=== PATIENT | female | born 1990 | race Hispanic/Latino ===

== ENCOUNTER 2017-10-11 04:56 | Inpatient (IN) | payer MEDICAID ==
[2017-10-11 05:57] LABS: BASOPHILS % (AUTO) 0.2 % (0.0-5.0); EOSINOPHILS % (AUTO) 0.1 % (0.0-8.0); HEMATOCRIT 28.3 % (36-48); LYMPHOCYTES % (AUTO) 8.8 % (21.0-51.0); MEAN CORPUSCULAR HEMOGLOBIN 20.4 pg (27.0-33.0); MEAN CORPUSCULAR HGB CONC 30.2 g/dL (32.0-36.0); MEAN CORPUSCULAR VOLUME 67.8 fL (79-99); MONOCYTES % (AUTO) 3.6 % (3.0-13.0); NEUTROPHILS % (AUTO) 87.3 % (40.0-77.0); PLATELET COUNT (AUTO) 305 K/uL (130-400); RED BLOOD CELL COUNT(AUTO) 4.18 MIL/uL (4.00-5.50); RED CELL DISTRIBUTION WIDTH 18.1 % (11.0-15.5); WHITE BLOOD COUNT (AUTO) 15.8 K/uL (4.8-10.8)
[2017-10-11 06:06] LABS: CREATININE 0.6 mg/dL (0.5-1.5); POTASSIUM 3.6 mmol/L (3.5-5.1)
[2017-10-11 06:10] LABS: ALBUMIN 2.4 g/dL (3.5-5.0); BILIRUBIN,TOTAL 0.3 mg/dL (0.2-1.0); INR 0.96 (0.85-1.15); PARTIAL THROMBOPLASTIN TIME 26.6 SEC (26.3-35.5); PROTHROMBIN TIME 10.1 SEC (9.6-11.6)
[2017-10-11] MEDS ORDERED: OXYTOCIN 10 USP UNITS/ML ONE (06:21)
[2017-10-11] MEDS ORDERED: LACTATED RINGERS 1000ML 1,000 ML IV ONE (06:21)
[2017-10-11] MEDS ORDERED: WITCH HAZEL 1 PAD TP PRN (06:45)
[2017-10-11] MEDS ORDERED: ACETAMINOPHEN-CODEINE 300/30MG TAB PO PRN (06:45)
[2017-10-11] MEDS ORDERED: ACETAMINOPHEN 325 MG TAB PO PRN (06:45)
[2017-10-11] MEDS ORDERED: OXYTOCIN-LR 20 UNITS/1000 ML 1,000 ML IV SCH (06:45)
[2017-10-11] MEDS ORDERED: BENZOCAINE/LANOLIN/ALOE VERA 60 ML AEROSOL TP PRN (06:45)
[2017-10-11] MEDS ORDERED: HYDROCODONE/ACETAMINOPHEN 5/325 MG TAB PO PRN (06:45)
[2017-10-11] MEDS: IBUPROFEN 800 MG TAB PO PRN ×2 (08:41→15:54)
[2017-10-11] MEDS: DOCUSATE SODIUM 100 MG CAP PO SCH ×2 (08:41→21:15)
[2017-10-11 09:00] LABS: RAPID PLASMA REAGIN NONREACTIVE (NONREACTIVE)
[2017-10-11 09:01] LABS: AMPHET/METH SCREEN,URINE NEGATIVE (NEGATIVE); BARBITURATE SCREEN, URINE NEGATIVE (NEGATIVE); BENZODIAZEPINES SCREEN,URINE NEGATIVE (NEGATIVE); CANNABINOID SCREEN,URINE NEGATIVE (NEGATIVE); COCAINE SCREEN,URINE POSITIVE (NEGATIVE); OPIATE SCREEN,URINE NEGATIVE (NEGATIVE); PHENCYCLIDINE SCREEN,URINE NEGATIVE (NEGATIVE)
[2017-10-11 12:20] VITALS: BP 109/73
[2017-10-11 15:41] VITALS: BP 93/51
[2017-10-11 19:29] VITALS: BP 119/69
[2017-10-11 23:44] VITALS: BP 110/58
[2017-10-12 03:41] VITALS: BP 119/62
[2017-10-12] MEDS: IBUPROFEN 800 MG TAB PO PRN (06:21)
[2017-10-12 07:24] VITALS: BP 122/67
[2017-10-12] MEDS: DOCUSATE SODIUM 100 MG CAP PO SCH (09:11)
[2017-10-12 12:11] VITALS: BP 115/63
[2017-10-12] MEDS ORDERED: MEASLES/MUMPS/RUBELLA VACCINE, LIVE 0.5 ML/VIAL SQ SCH (15:00)
[2017-10-12] MEDS ORDERED: IBUPROFEN 600 MG TABLET PO PRN (15:15)
[2017-10-12 15:17] VITALS: BP 101/56
[2017-10-13 06:17] LABS: HEPATITIS Bs ANTIGEN SCREEN P Negative (Negative)
== END 2017-10-12 15:25 | disposition home or self-care (01) | DRG 560 ==
LOC: EDH 04:56 → EDHIP 04:57 → LDH 06:37 → WSH 12:20
PROVIDERS: ADMIT Specialist; ATTEND Specialist
PROC: 10E0XZZ Delivery of Products of Conception, External Approach (ICD-10-PCS; principal; 2017-10-11)
DX: O62.3 Precipitate labor (principal); O99.325 Drug use complicating the puerperium; D64.9 Anemia, unspecified; O90.81 Anemia of the puerperium; F14.90 Cocaine use, unspecified, uncomplicated
CPT/HCPCS: 36415; 80053; 80305; 85025; 85610; 85730; 86592; 86701; 86850; 86900; 86901; 87340; 87390; 88305; 90707; J2590; J7120

== ENCOUNTER 2018-03-13 03:32 | Emergency (ER) | payer MEDICAID ==
[2018-03-13] MEDS ORDERED: DiphenhydrAMINE HCL 50 MG/ML VIAL ONE (03:45)
[2018-03-13] MEDS ORDERED: 0.9% SODIUM CHLORIDE 1000 ML IV BAG IV ONE (03:55)
[2018-03-13 04:01] LABS: BASOPHILS % (AUTO) 0.6 % (0.0-5.0); EOSINOPHILS % (AUTO) 0.4 % (0.0-8.0); HEMATOCRIT 34.8 % (36-48); LYMPHOCYTES % (AUTO) 21.3 % (21.0-51.0); MEAN CORPUSCULAR HEMOGLOBIN 22.9 pg (27.0-33.0); MEAN CORPUSCULAR HGB CONC 31.5 g/dL (32.0-36.0); MEAN CORPUSCULAR VOLUME 72.8 fL (79-99); NEUTROPHILS % (AUTO) 72.7 % (40.0-77.0); PLATELET COUNT (AUTO) 369 K/uL (130-400); RED BLOOD CELL COUNT(AUTO) 4.77 MIL/uL (4.00-5.50); RED CELL DISTRIBUTION WIDTH 17.5 % (11.0-15.5); WHITE BLOOD COUNT (AUTO) 10.5 K/uL (4.8-10.8)
[2018-03-13 04:18] LABS: CARBON DIOXIDE 21 mmol/L (21-32); CHLORIDE 102 mmol/L (101-111); CREATININE 0.8 mg/dL (0.5-1.5); GLOMERULAR FILTR. RATE CALC 92 mL/min (>60); GLUCOSE,RANDOM 103 mg/dL (70-105); POTASSIUM 3.6 mmol/L (3.5-5.1); SODIUM SERUM 135 mmol/L (136-145); UREA NITROGEN, BLOOD 8 mg/dL (7-18)
[2018-03-13 04:28] LABS: ALANINE AMINOTRANSFERASE 39 U/L (12-78); ALBUMIN 3.6 g/dL (3.5-5.0); ALCOHOL, BLOOD < 3 mg/dL (0-10); ASPARTATE AMINOTRANSFERASE 21 U/L (10-37); BILIRUBIN,TOTAL 0.2 mg/dL (0.2-1.0); HCG,QUANTITATIVE 0 mIU/mL (0-5); LIPASE 137 U/L (114-286); TOTAL PROTEIN, SERUM 8.2 g/dL (6.0-8.3)
[2018-03-13] MEDS ORDERED: IBUPROFEN 600 MG TABLET PO ONE (05:31)
== END 2018-03-13 06:08 | disposition home or self-care (01) ==
LOC: EDH 03:32
DX: F41.9 Anxiety disorder, unspecified (principal); R10.9 Unspecified abdominal pain; Z72.0 Tobacco use; V89.2XXA Person injured in unspecified motor-vehicle accident, traffic, initial encounter; Y93.89 Activity, other specified; Y92.481 Parking lot as the place of occurrence of the external cause; Y99.8 Other external cause status
CPT/HCPCS: 36415; 80053; 83690; 84702; 85025; 93005; 96372; 99284; G0480; J1200; J7030

== ENCOUNTER 2020-08-12 16:56 | Emergency (ER) | payer MEDICAID ==
[~2020-08-12] VITALS: Ht 160 cm; Wt 77.1 kg
[2020-08-12 17:07] VITALS: BP 136/76
[2020-08-12] MEDS ORDERED: DEXAMETHASONE SOD PHOSPHATE 10MG/ML 1ML VIAL IM SCH (18:45)
[2020-08-12] MEDS ORDERED: GUAIFENESIN-CODEINE 5 ML SYRUP PO ONE (19:15)
[2020-08-12] MEDS ORDERED: GUAIFENESIN-CODEINE 5 ML SYRUP ONE (19:17)
[2020-08-12] MEDS ORDERED: CETI10CA5 PO (19:18)
[2020-08-12] MEDS ORDERED: D-ME118S47 PO (19:18)
== END 2020-08-12 19:36 | disposition home or self-care (01) ==
LOC: EDH 16:56 → EEVIPCON 16:56 → EDH 19:36
DX: J06.9 Acute upper respiratory infection, unspecified (principal); Z20.822 Contact with and (suspected) exposure to COVID-19
CPT/HCPCS: 87635; 87804 ×2; 87880; 96372; 99283; C9803; J1100